=== PATIENT | male | born 1995 | race Caucasian/White ===

== ENCOUNTER 2022-08-07 14:17 | Emergency (ER) | payer OTHER, SELFPAY ==
[2022-08-07 14:25] VITALS: BP 142/93; PULSE 70; RESP 18; TEMP 37.1; O2SAT 95; BMI 40.7
--- NOTE | 2022-08-07 14:35 | XRR_ITS ---
PROCEDURE INFORMATION: Exam: XR Left Hand Exam date and time: 08/07/2022 2:40 PM Age: 27 years old Clinical indication: Injury or trauma; Other: Dopped log on finger; Blunt trauma (contusions or hematomas) and crushing; Hand; Left; Additional info: Trauma; Attn distal middle finger TECHNIQUE: Imaging protocol: Radiologic exam of the Left hand. Views: 3 or more views. COMPARISON: No relevant prior studies available. FINDINGS: Bones/joints: Comminuted fractures through the distal aspect of the 3rd digit distal phalanx with small free fracture fragments. Largest free fracture fragment measures 2.5 mm and is displaced 2 mm ulnarly. There is overlying soft tissue injury. Soft tissues: See Bones/joints finding. XR/XR hand LT min 3V* [id number] IMPRESSION: There are comminuted fractures through the distal 3rd digit distal phalanx with small free fracture fragments.
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
[2022-08-07] MEDS: ceFAZolin 1,000 mg SDV 1000 MG IM (15:39)
[2022-08-07 15:41] VITALS: PULSE 95; RESP 19; O2SAT 96
--- NOTE | 2022-08-10 10:16 | DCPLANNER ---
Addendum entered by Rianna Garcia 08/14/22 12:53: test center manager received the following message from the front office at [facility] regarding follow up appointment: I tried to call the number in chart for the work comp - states not accepting msgs at this time. I tried both numbers below for patient to try to get work comp contact information. first number is not in service, second number mail box is full. will need work comp approval before scheduling Original Note: test center manager had message to schedule a follow up appointment for patient with ortho. test center manager sent patients information to the front office staff at [facility]. Patients information will be printed and reviewed. Clinic will call patient with appointment information.
== END 2022-08-07 15:43 | disposition home or self-care (01) ==
PROVIDERS: Emergency Provider Physician Assistant
DX: S62.633B Displaced fracture of distal phalanx of left middle finger, initial encounter for open fracture (principal); W23.0XXA Caught, crushed, jammed, or pinched between moving objects, initial encounter
CPT/HCPCS: 12001; 73130; 96372; 99284; J0690

== ENCOUNTER 2022-12-18 23:43 | Emergency (ER) | payer OTHER, SELFPAY ==
[2022-12-18 23:47] VITALS: BP 157/97; PULSE 80; RESP 18; O2SAT 98
--- NOTE | 2022-12-18 23:57 | XRR_ITS ---
PROCEDURE INFORMATION: Exam: XR Right Tibia and Fibula Exam date and time: 12/19/2022 12:11 AM Age: 27 years old Clinical indication: Pain; Lower leg; Right; Additional info: Rle pain, PT got leg [place] TECHNIQUE: Imaging protocol: Radiologic exam of the right tibia and fibula. Views: 2 views. COMPARISON: No relevant prior studies available. FINDINGS: Bones/joints: Normal. Soft tissues: Mild distal soft tissue swelling. XR/XR tibia fibula RT 2V [id number] IMPRESSION: Negative for acute fracture.
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
--- NOTE | 2022-12-18 23:58 | XRR_ITS ---
PROCEDURE INFORMATION: Exam: XR Right Knee Exam date and time: 12/19/2022 12:12 AM Age: 27 years old Clinical indication: Pain; Knee; Right; Additional info: Knee pain TECHNIQUE: Imaging protocol: Radiologic exam of the right knee. Views: 3 views. COMPARISON: CR (LOW EXM, ) 12/19/2022 12:11 AM FINDINGS: Bones/joints: Normal. Soft tissues: Normal. XR/XR knee RT 3V* [id number] IMPRESSION: No acute findings.
--- NOTE | 2022-12-18 23:58 | XRR_ITS ---
PROCEDURE INFORMATION: Exam: XR Left Ankle Exam date and time: 12/19/2022 12:08 AM Age: 27 years old Clinical indication: Pain; Ankle; Left; Additional info: Ankle pain TECHNIQUE: Imaging protocol: Radiologic exam of the left ankle. Views: 3 or more views. COMPARISON: No relevant prior studies available. FINDINGS: Bones/joints: Normal. Soft tissues: Mild soft tissue swelling. XR/XR ankle LT min 3V* [id number] IMPRESSION: Negative for fracture.
[2022-12-19 00:03] VITALS: BP 137/86; PULSE 74; RESP 16; O2SAT 99
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
[2022-12-19] MEDS: ketorolac 60 mg/2 mL INJ IM (01:45)
[2022-12-19 02:53] VITALS: BP 151/85; PULSE 74; RESP 16; O2SAT 97
[2022-12-19] MEDS: cephALEXin 500 mg Capsule PO (02:56)
--- NOTE | 2022-12-21 09:01 | DCPLANNER ---
Addendum entered by Rianna Garcia 01/06/23 10:13: patient had a follow up appointment scheduled with ortho - patient did attend appointment. Addendum entered by Rianna Garcia 12/29/22 10:28: Patient has a follow up appointment scheduled for Thursday, January 05, 2023 at 10:[address] De León at ortho. Addendum entered by Rianna Garcia 12/24/22 13:38: deployment manager received the following message from the ortho clinic regarding follow up appointment: attempt made to contact patient - phone number rings and rings and then gives me air no answer on the other line. i will mail a letter to call our clinic to schedule follow up w/ letha summers Original Note: deployment manager had message to schedule a follow up appointment for patient with ortho. deployment manager sent patients information to the front office staff at ortho. Patients information will be printed and reviewed. Clinic will call patient with appointment information.
--- NOTE | 2022-12-21 12:24 | DCPLANNER ---
manager video games called patient due to no primary care physician - unable to speak with patient.
== END 2022-12-19 03:09 | disposition home or self-care (01) ==
PROVIDERS: Emergency Provider Nurse Practitioner Family
DX: M23.91 Unspecified internal derangement of right knee (principal); S60.221A Contusion of right hand, initial encounter; S61.411A Laceration without foreign body of right hand, initial encounter; S90.02XA Contusion of left ankle, initial encounter; S91.012A Laceration without foreign body, left ankle, initial encounter; W25.XXXA Contact with sharp glass, initial encounter; X50.1XXA Overexertion from prolonged static or awkward postures, initial encounter
CPT/HCPCS: 12001; 73130; 73562; 73590; 73610; 96372; 99284; E0114; J1885